=== PATIENT | female | born 1940 | race Caucasian/White ===

== ENCOUNTER 2016-11-13 15:10 | Outpatient (CLI) | payer OTHER ==
[2015-01-09 11:22] VITALS: BP 103/69
--- NOTE | 2016-11-13 22:51 | Diagnostic Imaging Report ---
MADYSON MERCHANT [facility] [address] [facility] [address] [id number] Report Submission Date: November 13, 2016 4:10:41 PM CDT Patient Study Name: JAMEL WEBER Date: November 13, 2016 3:27:03 PM CDT Modality Type: US Gender: F Description: BILAT US DVT : 36 Institution: [facility] Physician: MADYOSN MERCHANT Venous Doppler ultrasound History: BILATERAL PAIN AND SWELLING X SEVERAL MONTHS Deep to the grayscale and color Doppler images bilateral lower extremity veins are 6th submitted Findings: No comparison studies Right : Flow is demonstrated in the right external iliac, common femoral, deep femoral vein, femoral vein in its proximal, mid and distal aspects, greater saphenous vein, popliteal vein, these veins were compressible and demonstrate flow augmentation. Right posterior tibial vein is not clearly seen on the compression views but demonstrates flow Left: Flow is demonstrated in the left external iliac, left common femoral, deep femoral, femoral vein in its proximal, mid and distal aspects, greater saphenous vein, popliteal vein, these veins are compressible and demonstrate flow The left posterior tibial vein is compressible and demonstrates flow Impression: No evidence of dvt in the demonstrated deep venous segments of bilateral lower extremities Electronically signed on November 13, 2016 4:10:41 PM CDT by: Noa ESPOSITO
== END 2016-11-13 15:11 ==
LOC: RAD 15:10
PROVIDERS: ATTEND Physician Assistant
DX: M79.661 Pain in right lower leg (principal); M79.89 Other specified soft tissue disorders
CPT/HCPCS: 93970

== ENCOUNTER 2017-05-27 08:50 | Outpatient (CLI) | payer OTHER ==
[2015-01-09 11:22] VITALS: BP 103/69
== END 2017-05-27 09:00 ==
LOC: OUT 08:50
PROVIDERS: ATTEND General Practice
DX: N31.8 Other neuromuscular dysfunction of bladder (principal); N39.490 Overflow incontinence
CPT/HCPCS: G0463

== ENCOUNTER 2017-06-24 08:51 | Outpatient (CLI) | payer OTHER ==
[2015-01-09 11:22] VITALS: BP 103/69
== END 2017-06-24 10:37 ==
LOC: OUT 08:51
PROVIDERS: ATTEND General Practice
DX: N31.2 Flaccid neuropathic bladder, not elsewhere classified (principal)
CPT/HCPCS: G0463

== ENCOUNTER 2017-06-24 11:01 | Outpatient (CLI) | payer OTHER ==
[2015-01-09 11:22] VITALS: BP 103/69
[2017-06-24 11:55] LABS: eGFR (African) > 60; eGFR (Non-African) > 60
== END 2017-06-24 12:56 ==
LOC: LAB 11:01
PROVIDERS: ATTEND Family Medicine
DX: E78.2 Mixed hyperlipidemia (principal)
CPT/HCPCS: 36415; 80053; 80061

== ENCOUNTER 2017-07-11 18:51 | Emergency (ER) | payer OTHER ==
[2017-07-11] MEDS ORDERED: 0.9 % SODIUM CHLORIDE 1,000 ML IV ONE (19:03)
--- NOTE | 2017-07-11 19:03 | ED Physician Documentation ---
General Adult - HISTORIAN Historian: patient (depression hyperlipidemia ) - HPI Stated Complaint: per EMS for delusions and possible UTI Chief Complaint: Female Urogenital Problems Onset: other (Unknown) Timing: still present Severity: mild Further Comments: yes (She reports she does see urology for ongoing bladder issues. She reports she does have pain with urination. Denies any blood in urine. Denies fever. She has no other complaints) Last known Well Date: 07/09/17 Last Known Well Time: 08:00 Last known Well Code/Unknown Code: Unknown - ROS CONST: no problems GI/: problems urinating. denies: abdominal pain, vomiting, nausea, diarrhea - PAST HX Past History: other Surgeries/Procedures: other Immunizations: referred to PCP Allergies/Adverse Reactions: Allergies Allergy/AdvReac Type Severity Reaction Status Date / Time No Known Allergies Allergy Verified 07/11/17 19:59 Home Medications: Ambulatory Orders Medication Instructions Recorded Aspir 81 81 mg PO DAILY 08/11/12 Nitrofurantoin Monohyd/M-Cryst 100 mg PO BID #20 capsule 07/11/17 [Macrobid] - SOCIAL HX Smoking History: non-smoker Alcohol Use: none Drug Use: none - FAMILY HX Family History: No - VITAL SIGNS Vital Signs: Vital Signs Temp Pulse Resp BP Pulse Ox 103/69 01/09/15 10:53 - REVIEWED ASSESSMENTS Nursing Assessment Reviewed: Yes Vitals Reviewed: Yes General Adult Physical Exam - PHYSICAL EXAM GENERAL APPEARANCE: no distress EENT: eye inspection normal RESPIRATORY: no resp distress, chest non-tender, breath sounds normal CVS: reg rate & rhythm, heart sounds normal, equal pulses, no murmur ABDOMEN: soft, no organomegaly, normal bowel sounds. No: rebound, guarding SKIN: warm/dry, normal color EXTREMITIES: non-tender, normal range of motion NEURO: oriented X3, CN's nml as tested, motor nml Discharge Clincal Impression: Urinary tract infection Qualifiers: Urinary tract infection type: site unspecified Hematuria presence: without hematuria Qualified Code(s): N39.0 - Urinary tract infection, site not specified Prescriptions: Nitrofurantoin Monohyd/M-Cryst [Macrobid] 100 mg PO BID #20 capsule Referrals: Shanelle Mak MD [Primary Care Provider] - 2 Days Additional Instructions: Increase fluids take Macrobid 100 mg BID X 7 days return for any change in symptoms to ER Condition: Stable Disposition: 01 HOME, SELF-CARE Decision to Admit: NO Date of Decison to Admit: 07/11/17 Decision Time: 19:47
[2017-07-11 19:31] LABS: BASOPHILS % 0.7 (0.0-1.5); EOSINOPHILS % 3.6 % (0.0-6.8); MEAN CORPUSCULAR HEMOGLOBIN 29.7 pg (28.0-34.0); MEAN CORPUSCULAR VOLUME 86.5 fl (80.0-100.0); MONOCYTES % 5.9 % (0.0-11.0); NEUTROPHILS # 4.4 # k/uL (1.4-7.7)
[2017-07-11] MEDS ORDERED: NITROFURANTOIN 100 MG CAPSULE PO ONE (19:38)
[2017-07-11 20:03] LABS: eGFR (African) > 60; eGFR (Non-African) > 60
[2017-07-11 20:54] VITALS: BP 169/83
[2017-07-13 07:16] LABS: APPEARANCE,URINE CLEAR (CLEAR); COLOR,URINE YELLOW (YELLOW); OCCULT BLOOD,URINE TRACE-INTACT (NEGATIVE); PH URINE 5.5 (5.0 - 8.0); UROBILINOGEN URINE 0.2 Eu (0.2-1.0)
== END 2017-07-11 20:30 | disposition home or self-care (01) ==
LOC: ED 18:51
DX: N39.0 Urinary tract infection, site not specified (principal)
CPT/HCPCS: 80053; 85025; J7030; 96360; 99283

== ENCOUNTER 2017-07-25 13:09 | Outpatient (CLI) | payer OTHER ==
[2017-07-25 13:41] LABS: APPEARANCE,URINE Clear (CLEAR); COLOR,URINE Yellow (YELLOW); OCCULT BLOOD,URINE Trace-intact (NEGATIVE); UROBILINOGEN URINE 0.2 Eu (0.2-1.0)
== END 2017-07-25 13:10 ==
LOC: LAB 13:09
PROVIDERS: ATTEND Internal Medicine Hematology & Oncology
DX: N39.0 Urinary tract infection, site not specified (principal)
CPT/HCPCS: 81002

== ENCOUNTER 2017-09-26 08:30 | Outpatient (CLI) | payer OTHER | END 2017-09-26 13:26 | LOC: LABRHC 08:30 | PROVIDERS: ATTEND Family Medicine | DX: R30.0 Dysuria (principal) | CPT/HCPCS: 87086 ==